=== PATIENT | female | born 1945 | race Caucasian/White ===

== ENCOUNTER → 2016-10-03 | Outpatient (CLI) | payer OTHER ==
[~2016-10-03] MED LIST: COMBAER INH; HUMALOGP SQ; LISI10TA PO; LOVA20TA PO; PROT40TA PO
--- NOTE | 2016-10-08 09:40 | RSPPFT ---
DATE OF PROCEDURE: 10/03/16 COMMENTS: VOLUMES DYNAMIC: FVC mildly reduced; FEV1 normal. STATIC: TLC normal; VTG and RV moderately increased. FLOWS: FEV1% and FEF 25-75 super normal. DIFFUSION: Normal. FLOW VOLUME LOOP: Mild restrictive configuration. IMPRESSION: There is a mild reduction in the FVC both pre- and post-bronchodilator and no significant airways obstruction. There is some degree of hyperinflation but normal airways resistance. Diffusion capacity is normal.
== END ==
LOC: HRSP 10:29
PROVIDERS: ATTEND Internal Medicine
DX: J44.9 Chronic obstructive pulmonary disease, unspecified (principal)
CPT/HCPCS: 94620